=== PATIENT | female | born 1985 | race Caucasian/White ===

== ENCOUNTER 2019-10-12 14:02 | Emergency (ER) | payer BC, SELFPAY ==
[2019-10-12 14:26] VITALS: BP 154/97; PULSE 84; RESP 16; TEMP 36.8; O2SAT 100
--- NOTE | 2019-10-12 14:34 | ED.URI ---
HPI - URI/Sore Throat General Chief Complaint: Upper Respiratory Infection Stated Complaint: Ear/Nose/Throat History of Present Illness HPI Narrative: This is a 34-year-old female comes in complaining of sinus pressure and congestion according to patient for the past week she has had pressure in her face up in her eyes as given her headache. Patient states she is been taking [place] DayQuil and some Tylenol and ibuprofen for the pain. Patient denies any nausea vomiting chills and/or fever. Patient states she is coughing greenish secretion Related Data Allergies Allergy/AdvReac Type Severity Reaction Status Date / Time No Known Allergies Allergy Verified 10/12/19 14:34 Review of Systems Review of Systems: Narrative: CONSTITUTIONAL: Denies fever, chills, or sweats. EYES: Denies visual changes, redness, or discharge. ENT: reports rhinorrhea, congestion, sore throat, or otalgia. CARDIOVASCULAR:Denies chest pain, palpitations, or edema. RESPIRATORY: Denies cough or dyspnea. GASTROINTESTINAL: Denies abdominal pain, nausea, vomiting, or diarrhea. GENITOURINARY: Denies dysuria or hematuria. SKIN:[Denies rash or itching. MUSCULOSKELETAL:Denies back pain, joint pain, or myalgia. NEUROLOGIC: Denies headache, numbness, or weakness. PSYCHIATRIC:Denies anxiety or depression PMFSH Comments At time as signature, I have reviewed and agree with nursing past medical, social, surgical and family history. Please see nursing chart for further information. There is no relevant family history pertinent to the presenting complaint. Exam Narrative: Exam Narrative: GENERAL:Well-appearing, well-nourished, and in no acute distress. HEAD:Normocephalic, atraumatic. EYES: PERRLA and EOMI. ENT: Nares clear, moderate rhinorrhea or epistaxis. Mucous membranes moist. Pharyngeal erythema T-zone pressure and pain with headache TM bulging NECK: Supple. CHEST: Clear to auscultation. No respiratory distress. HEART: Regular rate and rhythm. No murmur heard. Normal peripheral pulses. ABDOMEN: Soft, nontender, nondistended, normal active bowel sounds. EXTREMITIES: Normal range of motion. No edema. SKIN: Warm, dry, no rash. NEURO: No focal deficits. Alert and oriented x3. This is Course Vital Signs Vital signs: Vital Signs Temperature 98.3 F 03/09/20 14:26 Pulse Rate 84 10/12/19 14:26 Respiratory Rate 16 10/12/19 14:26 Blood Pressure 154/97 H 10/12/19 14:26 Pulse Oximetry 100 10/12/19 14:26 Temperature 98.3 F 10/12/19 14:26 Pulse Rate 84 10/12/19 14:26 Respiratory Rate 16 10/12/19 14:26 Blood Pressure 154/97 H 10/12/19 14:26 Pulse Oximetry 100 10/12/19 14:26 Discharge Plan Discharge Clinical Impression: Sinusitis Qualifiers: Sinusitis location: unspecified location Chronicity: acute Recurrence: not specified as recurrent Qualified Code(s): J01.90 - Acute sinusitis, unspecified Patient Disposition: Home, Self-Care Condition: Stable Instructions: Antibiotic Form, Sinusitis (ED), Rhinosinusitis (ED) Prescriptions: New loratadine [Claritin] 10 mg tablet 10 mg PO DAILY PRN (Reason: allergy symptoms) Qty: 30 RF: 0 amoxicillin-pot clavulanate [Augmentin] 875-125 mg tablet 1 tablet PO Q12H 10 Days Qty: 20 RF: 0 Follow-up/Referrals: UNKNOWN,DOCTOR [Primary Care Provider] - Stand Alone Forms: Work/School Release IP Time of Disposition: 15:05
== END 2019-10-12 15:10 | disposition home or self-care (01) ==
PROVIDERS: Emergency Provider Nurse Practitioner Family
DX: J01.90 Acute sinusitis, unspecified (principal)
CPT/HCPCS: 99203; G0463

== ENCOUNTER 2020-04-13 14:44 | Emergency (ER) | payer BC, SELFPAY ==
[2020-04-13 14:52] VITALS: BP 149/82; PULSE 84; RESP 14; TEMP 37.1; O2SAT 97
--- NOTE | 2020-04-13 15:08 | ED.URI ---
HPI - URI/Sore Throat General Chief Complaint: Upper Respiratory Infection Stated Complaint: sore throat Time Seen by Provider: 04/13/20 15:08 Source: patient and RN notes reviewed History of Present Illness HPI Narrative: Patient is a 35-year-old female who presents the urgent care with complaints of a sore throat, sores on the roof of the mouth, postnasal drainage, intermittent hoarseness, and nasal congestion. Patient states that she was tested for COVID on the , which was negative at that time. Patient denies any new known exposure. Denies taking anything [id number] for her symptoms. States that the new symptoms started last night. No other acute complaints. No acute distress noted. Patient aware the plan of care. Related Data Allergies Allergy/AdvReac Type Severity Reaction Status Date / Time No Known Allergies Allergy Verified 04/13/20 15:11 Review of Systems Review of Systems: Narrative: CONSTITUTIONAL: Denies fever, chills, or sweats. EYES: Denies visual changes, redness, or discharge. ENT: Reports of sore throat, nasal congestion, postnasal drainage CARDIOVASCULAR: Denies chest pain, palpitations, or edema. RESPIRATORY: Denies cough or dyspnea. GASTROINTESTINAL: Denies abdominal pain, nausea, vomiting, or diarrhea. GENITOURINARY: Denies dysuria or hematuria. SKIN: Denies rash or itching. MUSCULOSKELETAL: Denies back pain, joint pain, or myalgia. NEUROLOGIC: Denies headache, numbness, or weakness. All other systems reviewed are negative, except as documented in HPI. PMFSH Comments At the time of my signature, I reviewed and agree with the nursing past medical, surgical, social, and family history. There is no relevant family history pertinent to the patient complaint. Exam Narrative: Exam Narrative: GENERAL: This is a well-nourished, well-developed patient, in no apparent distress. HEAD: normocephalic, atraumatic. EYES: PERRL. Sclera clear/white. Vision is grossly intact. EARS: External ears normal, auditory canals clear and without drainage, TMs normal without perforation. Hearing grossly intact. NOSE: External nose normal with no obvious nasal discharge, nares without redness, no rhinorrhea. THROAT: Mucous membranes moist, mild to moderate erythema noted posterior oropharynx with moderate clear postnasal drainage without exudate or ulceration. No tonsillar edema. NECK: Neck supple CARDIOVASCULAR: Regular rate and rhythm without murmurs, gallops, or rubs. RESPIRATORY: Clear to auscultation. Breath sounds equal bilaterally. No wheezes, rales, or rhonchi. SKIN: warm, intact with no suspicious lesions or rash, good texture and turgor. NEURO: awake, alert, and oriented to person, place and time. There were no obvious focal neurologic abnormalities. EXTREMITIES: No clubbing, cyanosis, or edema. Course Vital Signs Vital signs: Vital Signs Temperature 98.7 F 04/13/20 14:52 Pulse Rate 84 04/13/20 14:52 Respiratory Rate 14 04/13/20 14:52 Blood Pressure 149/82 H 04/13/20 14:52 Pulse Oximetry 97 04/13/20 14:52 Temperature 98.7 F 04/13/20 14:52 Pulse Rate 84 04/13/20 14:52 Respiratory Rate 14 04/13/20 14:52 Blood Pressure 149/82 H 04/13/20 14:52 Pulse Oximetry 97 04/13/20 14:52 Reviewed-patient is informed that they may have pre-hypertension or hypertension based on a blood pressure reading in the department. I recommend the patient call the primary care provider listed on their discharge instructions or a physician of their choice this week to arrange follow-up for further evaluation of possible pre-hypertension or hypertension. MDM - URI/Sore Throat MDM Narrative Medical decision making narrative: Reviewed lab results with the patient. She is aware that strep swab was negative. Educated patient on culture we will call within 72 hours if culture is positive and antibiotics are necessary. Advised the patient to use Claritin and Flonase as directed. Do not sleep with a fan
== END 2020-04-13 15:25 | disposition home or self-care (01) ==
PROVIDERS: Emergency Provider Nurse Practitioner Family
DX: J32.9 Chronic sinusitis, unspecified (principal); J02.9 Acute pharyngitis, unspecified
CPT/HCPCS: 87081; 87880; 99213; G0463

== ENCOUNTER 2020-11-21 14:54 | Emergency (ER) | payer BC, SELFPAY ==
[2020-11-21 15:00] VITALS: BP 146/80; PULSE 84; RESP 22; TEMP 37; O2SAT 98
--- NOTE | 2020-11-21 15:09 | ED.URI ---
HPI - URI/Sore Throat General Chief Complaint: Upper Respiratory Infection Stated Complaint: sore throat headache dizzy Time Seen by Provider: 11/21/20 15:09 Source: patient and RN notes reviewed Mode of arrival: ambulatory Limitations: no limitations History of Present Illness HPI Narrative: 35-year-old presents to the [facility] with complaints of sinus issues and a sore throat since Saturday, 5 days ago. Is taken to Claritin over the last 2 days and states it helped a little. No other treatment prior to arrival. Denies fevers. No chest pain or nausea vomiting or diarrhea. No abdominal pain Related Data Allergies Allergy/AdvReac Type Severity Reaction Status Date / Time No Known Allergies Allergy Verified 11/21/20 15:00 Review of Systems Review of Systems: Narrative: CONSTITUTIONAL: Denies fever, chills, or sweats. EYES: Denies visual changes, redness, or discharge. ENT: Reports rhinorrhea, congestion, sore throat, or otalgia. CARDIOVASCULAR: Denies chest pain, palpitations, or edema. RESPIRATORY: Denies cough or dyspnea. GASTROINTESTINAL: Denies abdominal pain, nausea, vomiting, or diarrhea. MUSCULOSKELETAL: Denies back pain, joint pain, or myalgia. NEUROLOGIC: Denies headache, numbness, or weakness. All other systems reviewed are negative, except as documented in HPI. PMFSH Comments At the time of my signature, I reviewed and agree with the nursing past medical, surgical, social, and family history. There is no relevant family history pertinent to the patient complaint. Exam Narrative: Exam Narrative: GENERAL: This is a well-nourished, well-developed patient, in no apparent distress. HEAD: normocephalic, atraumatic. EYES: PERRL. Sclera clear/white. Vision is grossly intact. EARS: External ears normal, auditory canals clear and without drainage, TMs normal without perforation. Hearing grossly intact. NOSE: External nose normal with clear nasal discharge, nares with redness and injection. THROAT: Mucous membranes moist, posterior pharynx drainage noted NECK: Neck supple, non-tender without lymphadenopathy, masses or thyromegaly. CARDIOVASCULAR: Regular rate and rhythm without murmurs, gallops, or rubs. RESPIRATORY: Clear to auscultation. Breath sounds equal bilaterally. No wheezes, rales, or rhonchi. GASTROINTESTINAL: Abdomen soft, non-tender, nondistended. SKIN: warm, Dry, intact with no suspicious lesions or rash, good texture and turgor. NEURO: awake, alert, and oriented to person, place and time. There were no obvious focal neurologic abnormalities. EXTREMITIES: No joint tenderness, effusion, or edema noted. BACK: Nontender without deformity. Course Course Emergency Course: Discussed with patient the results. Discussed the importance of following up with a primary care provider. Discussed that the strep results can take up to 72 hours as well as the Covid PCR. Discussed treatment plan, signs and symptoms to return or go to the ER. Patient verbalized understanding Vital Signs Vital signs: Vital Signs Temperature 98.6 F 11/21/20 15:00 Pulse Rate 84 11/21/20 15:00 Respiratory Rate 22 H 11/21/20 15:00 Blood Pressure 146/80 H 11/21/20 15:00 Pulse Oximetry 98 11/21/20 15:00 Temperature 98.6 F 11/21/20 15:00 Pulse Rate 84 11/21/20 15:00 Respiratory Rate 22 H 11/21/20 15:00 Blood Pressure 146/80 H 11/21/20 15:00 Pulse Oximetry 98 11/21/20 15:00 Reviewed MDM - URI/Sore Throat MDM Narrative Medical decision making narrative: Discharge instructions reviewed with patient, as well as provided in writing per nursing staff. The instructions also include specific and strict return/GO TO THE ER as well as f/u information. All questions have been answered, and the patient deny any further questions with discharge and discharge plan. Differential Diagnosis Differential diagnosis: Likely upper respiratory infection, otitis media, sinusitis, viral infection, bronchitis, influenza and phar
[2020-11-22 20:31] LABS: SARS-CoV-2 RNA PCR Positive
== END 2020-11-21 15:55 | disposition home or self-care (01) ==
PROVIDERS: Emergency Provider Nurse Practitioner
DX: U07.1 COVID-19 (principal); J01.41 Acute recurrent pansinusitis
CPT/HCPCS: 87081; 87426; 87804; 87880; 99213; C9803; G0463; U0003; U0005

== ENCOUNTER 2021-12-18 12:44 | Emergency (ER) | payer SELFPAY ==
--- NOTE | 2021-12-18 12:52 | ED.URI ---
HPI - URI/Sore Throat General Chief Complaint: Ear Stated Complaint: headache ear pain nausea Time Seen by Provider: 12/18/21 13:55 Source: patient and RN notes reviewed Mode of arrival: ambulatory Limitations: no limitations History of Present Illness HPI Narrative: 36-year-old female presents with concern for headache, ear pain, nausea, coughing. She reports symptoms started on . Reports she was exposed to COVID on Saturday. She reports she is taking Claritin with very mild relief. She denies nausea, vomiting, diarrhea, body aches, chills, fever, sweats. MD elicited complaint: cough and other (Ear pain) Related Data Allergies Allergy/AdvReac Type Severity Reaction Status Date / Time No Known Allergies Allergy Verified 11/21/20 15:00 Review of Systems Review of Systems: CONSTITUTIONAL: Denies malaise. Denies chills, sweats, or fever. EYES: Denies visual changes, redness, or discharge. ENT: Reports rhinorrhea, congestion, otalgia CARDIOVASCULAR: Denies chest pain, palpitations, or edema. RESPIRATORY: Reports cough. Denies dyspnea. GASTROINTESTINAL: Denies abdominal pain, nausea, vomiting, diarrhea SKIN: Denies rash or itching. MUSCULOSKELETAL: Denies myalgia. NEUROLOGIC: Reports headache. All systems reviewed & are unremarkable except as noted in HPI and below PMFSH Comments At time of signature, agree with nursing past medical, surgical, social and family history. There is no relevant family history pertinent to the presenting complaint Exam Narrative: GENERAL: Nontoxic appearing and in no acute distress. HEAD: Normocephalic EYES: PERRLA, conjunctivae clear ENT: Nares clear, turbinates edematous and erythematous, clear discharge. Mucous membranes moist. TM pearly gan with dull light reflex bilaterally; no tragal tenderness. Oropharynx not erythematous without lesions. Tonsils not enlarged and without exudate, no drooling, no hoarseness, no trismus, uvula midline. NECK: Supple. No lymphadenopathy CHEST: Clear to auscultation, breath sounds equal. No wheezing, rhonchi, rales, or stridor. No respiratory distress, speaks in full sentences. HEART: Regular rate and rhythm. No murmur heard. SKIN: Warm, dry, no rash. NEURO: Alert and oriented x3. PSYCH: Normal mood and affect Course Course Emergency Course: Patient is aware of diagnosis, understands and agrees to treatment plan. Anticipatory guidance given. Patient agrees to follow-up as directed and is aware of reasons to seek care at the emergency department. Portions of this record may have been created with voice recognition software Level of Care: Express Care Visit Vital Signs Vital signs: Vital Signs Temperature 98.5 F 12/18/21 13:00 Pulse Rate 85 12/18/21 13:00 Respiratory Rate 18 12/18/21 13:00 Blood Pressure 141/92 H 12/18/21 13:00 Pulse Oximetry 98 12/18/21 13:00 Temperature 98.5 F 12/18/21 13:00 Pulse Rate 85 12/18/21 13:00 Respiratory Rate 18 12/18/21 13:00 Blood Pressure 141/92 H 12/18/21 13:00 Pulse Oximetry 98 12/18/21 13:00 Reviewed. MDM - URI/Sore Throat MDM Narrative Medical decision making narrative: Differential diagnosis considered: Lin virus, strep pharyngitis, allergic rhinitis, upper respiratory tract infection, sinusitis, rhinosinusitis, nasopharyngitis. viral pharyngitis, otitis media, otitis externa, pneumonia, bronchitis, viral cough syndrome, viral syndrome, and influenza. Exam findings show no acute concerns or changes; patient is non-toxic appearing and is in no distress. Patient is appropriate for outpatient treatment and follow-up. Lab Data Attestation: I reviewed the patient's lab results. Critical Care Time Critical Care Time Critical Care Time: No Discharge Plan Discharge Clinical Impression: Upper respiratory infection Qualifiers: URI type: unspecified viral URI Qualified Code(s): J06.9 - Acute upper respiratory infection, unspecified Patient Disposition: Home, Self-Care
[2021-12-18 13:00] VITALS: BP 141/92; PULSE 85; RESP 18; TEMP 36.9; O2SAT 98
[2021-12-18 19:48] LABS: SARS-CoV-2 RNA PCR Negative
== END 2021-12-18 14:26 | disposition home or self-care (01) ==
PROVIDERS: Emergency Provider Nurse Practitioner
DX: J06.9 Acute upper respiratory infection, unspecified (principal); Z20.822 Contact with and (suspected) exposure to COVID-19
CPT/HCPCS: 87804; 99213; C9803; G0463; U0003; U0005

== ENCOUNTER 2022-04-23 17:04 | Emergency (ER) | payer OTHER, SELFPAY ==
[2022-04-23 17:12] VITALS: BP 153/101; PULSE 88; RESP 20; TEMP 37.1; O2SAT 99
--- NOTE | 2022-04-23 17:15 | ED.FEMALEGU ---
HPI - Female Genitourinary General Chief complaint: Urogenital-Female Stated complaint: Vaginal Issue Time Seen by Provider: 04/23/22 17:15 Source: patient and RN notes reviewed History of Present Illness HPI Narrative: Patient is a 37-year-old female who presents the urgent care with complaints of yeast infection. Patient states that she has had a lot of vaginal itching and burning. States that it started 2 weeks ago after she was on antibiotics a couple months ago. Patient did use a 7-day cream [id number] with mild relief but no resolution. Patient denies of any vaginal discharge or drainage. Denies any urinary symptoms. No other acute complaints. No acute distress noted. Patient aware of the plan of care. Some parts of this dictation were generated by voice recognition software and may contain typographical and/or grammatical inaccuracies. Related Data Allergies Allergy/AdvReac Type Severity Reaction Status Date / Time No Known Allergies Allergy Verified 11/21/20 15:00 Review of Systems Review of Systems: CONSTITUTIONAL: Denies fever, chills, or sweats. EYES: Denies visual changes, redness, or discharge. ENT: Denies rhinorrhea, congestion, sore throat, or otalgia. CARDIOVASCULAR: Denies chest pain, palpitations, or edema. RESPIRATORY: Denies cough or dyspnea. GASTROINTESTINAL: Denies abdominal pain, nausea, vomiting, or diarrhea. GENITOURINARY: Reports of vaginal itching and burning SKIN: Denies rash or itching. MUSCULOSKELETAL: Denies back pain, joint pain, or myalgia. NEUROLOGIC: Denies headache, numbness, or weakness. All other systems reviewed are negative, except as documented in HPI. PMFSH Comments At the time of my signature, I reviewed and agree with the nursing past medical, surgical, social, and family history. There is no relevant family history pertinent to the patient complaint. Exam Narrative: GENERAL: This is a well-nourished, well-developed patient, in no apparent distress. HEAD: normocephalic, atraumatic. EYES: PERRL. Sclera clear/white. Vision is grossly intact. EARS: External ears normal NOSE: External nose normal with no obvious nasal discharge, nares without redness, no rhinorrhea. THROAT: Mucous membranes moist NECK: Neck supple CARDIOVASCULAR: Regular rate and rhythm without murmurs, gallops, or rubs. RESPIRATORY: Clear to auscultation. Breath sounds equal bilaterally. No wheezes, rales, or rhonchi. : Deferred exam SKIN: warm, intact with no suspicious lesions or rash, good texture and turgor. NEURO: awake, alert, and oriented to person, place and time. There were no obvious focal neurologic abnormalities. EXTREMITIES: No clubbing, cyanosis, or edema. Course Course Level of Care: Express Care Visit Vital Signs Vital signs: Vital Signs Temperature 98.7 F 04/23/22 17:12 Pulse Rate 88 04/23/22 17:12 Respiratory Rate 20 04/23/22 17:12 Blood Pressure 153/101 H 04/23/22 17:12 Pulse Oximetry 99 04/23/22 17:12 Oxygen Delivery Room Air 04/23/22 17:12 Temperature 98.7 F 04/23/22 17:12 Pulse Rate 88 04/23/22 17:12 Respiratory Rate 20 04/23/22 17:12 Blood Pressure 153/101 H 04/23/22 17:12 Pulse Oximetry 99 04/23/22 17:12 Oxygen Delivery Room Air 04/23/22 17:12 Reviewed-patient is informed that they may have pre-hypertension or hypertension based on a blood pressure reading in the department. I recommend the patient call the primary care provider listed on their discharge instructions or a physician of their choice this week to arrange follow-up for further evaluation of possible pre-hypertension or hypertension. MDM - Female Genitourinary MDM Narrative Medical decision making narrative: Advised the patient to take the 1 dose of Diflucan today and if symptoms are not resolved on , take the second dose. Clean the area with plain Dial soap and water and avoid any scented creams or soaps. Follow-up with your PCP within 2 to 5 days or
== END 2022-04-23 17:42 | disposition home or self-care (01) ==
PROVIDERS: Emergency Provider Nurse Practitioner Family
DX: B37.3 Candidiasis of vulva and vagina (principal)
CPT/HCPCS: 99213; G0463

== ENCOUNTER 2022-10-24 14:45 | Emergency (ER) | payer OTHER, SELFPAY ==
[2022-10-24 15:00] VITALS: BP 172/105; PULSE 70; RESP 20; TEMP 37.4; O2SAT 99
--- NOTE | 2022-10-24 15:23 | ED.URI ---
HPI - URI/Sore Throat General Chief Complaint: Upper Respiratory Infection Stated Complaint: poss pink eye/cold Time Seen by Provider: 10/24/22 15:00 Source: patient and RN notes reviewed History of Present Illness HPI Narrative: Patient is a 37-year-old female who presents to the Urgent Care with complaints of redness and irritation to the right eye as well as upper respiratory symptoms such as congestion, runny nose, stuffiness, sore throat, cough for the last 7 days. Patient has been using [id number] lubricant eye drops to the right eye and taking Sudafed for her upper respiratory symptoms. Denies any fever. Denies any injury to the eye. States that she does wear contacts but has been wearing the glasses today. No other acute complaints. No acute distress noted. Patient aware of the plan of care. Some parts of this dictation were generated by voice recognition software and may contain typographical and/or grammatical inaccuracies. Related Data Home Medications Medication Instructions Recorded Confirmed metformin 500 mg tablet,extended 500 mg PO BID 10/24/22 10/24/22 release 24 hr Allergies Allergy/AdvReac Type Severity Reaction Status Date / Time No Known Allergies Allergy Verified 10/24/22 15:08 Review of Systems Review of Systems: CONSTITUTIONAL: Denies fever, chills, or sweats. EYES: Reports of right eye redness, irritation and drainage ENT: Reports rhinorrhea, congestion, mild sore throat CARDIOVASCULAR: Denies chest pain, palpitations, or edema. RESPIRATORY: Reports of cough without dyspnea GASTROINTESTINAL: Denies abdominal pain, nausea, vomiting, or diarrhea. GENITOURINARY: Denies dysuria or hematuria. SKIN: Denies rash or itching. MUSCULOSKELETAL: Denies back pain, joint pain, or myalgia. NEUROLOGIC: Denies headache, numbness, or weakness. All other systems reviewed are negative, except as documented in HPI. PMFSH Comments At the time of my signature, I reviewed and agree with the nursing past medical, surgical, social, and family history. There is no relevant family history pertinent to the patient complaint. Exam Narrative: GENERAL: This is a well-nourished, well-developed patient, in no apparent distress. HEAD: normocephalic, atraumatic. Frontal sinus tenderness EYES: PERRL. Moderate injected sclera to the right with injected conjunctiva bilaterally and clear drainage. Vision is grossly intact. EARS: External ears normal, auditory canals clear and without drainage, TMs normal without perforation. Hearing grossly intact. NOSE: External nose normal with no obvious nasal discharge, nares without redness, clear rhinorrhea. THROAT: Mucous membranes moist, posterior pharynx clear. Moderate postnasal drainage NECK: Neck supple, non-tender without lymphadenopathy CARDIOVASCULAR: Regular rate and rhythm without murmurs, gallops, or rubs. RESPIRATORY: Clear to auscultation. Breath sounds equal bilaterally. No wheezes, rales, or rhonchi. SKIN: warm, intact with no suspicious lesions or rash, good texture and turgor. NEURO: awake, alert, and oriented to person, place and time. There were no obvious focal neurologic abnormalities. EXTREMITIES: No clubbing, cyanosis, or edema. Course Course Level of Care: Express Care Visit Vital Signs Vital signs: Vital Signs Temperature 99.3 F 10/24/22 15:00 Pulse Rate 70 10/24/22 15:00 Respiratory Rate 20 10/24/22 15:00 Blood Pressure 172/105 H 10/24/22 15:00 Pulse Oximetry 99 10/24/22 15:00 Oxygen Delivery Room Air 10/24/22 15:00 Temperature 99.3 F 10/24/22 15:00 Pulse Rate 70 10/24/22 15:00 Respiratory Rate 20 10/24/22 15:00 Blood Pressure 172/105 H 10/24/22 15:00 Pulse Oximetry 99 10/24/22 15:00 Oxygen Delivery Room Air 10/24/22 15:00 Reviewed- Patient is informed that they may have pre-hypertension or hypertension based on a blood pressure reading in the department. I recommend the patient call the primary ca
== END 2022-10-24 15:40 | disposition home or self-care (01) ==
PROVIDERS: Emergency Provider Nurse Practitioner Family
DX: J32.9 Chronic sinusitis, unspecified (principal); H10.9 Unspecified conjunctivitis
CPT/HCPCS: 99213; G0463

== ENCOUNTER 2023-02-13 12:00 | Emergency (ER) | payer OTHER, SELFPAY ==
--- NOTE | 2023-02-13 12:02 | ED.URI ---
HPI - URI/Sore Throat General Chief Complaint: Upper Respiratory Infection Stated Complaint: congestion/sore throat Time Seen by Provider: 02/13/23 12:02 Source: patient and RN notes reviewed History of Present Illness HPI Narrative: Patient is a 37-year-old female who presents to Urgent Care with sinus congestion, sore throat, drainage and cough. Patient states it started Saturday after sitting outside late Saturday night watching fireworks. Patient has been taking [id number] sinus medication and ibuprofen. Denies any fever, nausea or vomiting. No other acute complaints. No acute distress noted. Patient aware of the plan of care. Some parts of this dictation were generated by voice recognition software and may contain typographical and/or grammatical inaccuracies. Related Data Home Medications Medication Instructions Recorded Confirmed metformin 500 mg tablet,extended 500 mg PO BID 10/24/22 10/24/22 release 24 hr Allergies Allergy/AdvReac Type Severity Reaction Status Date / Time No Known Allergies Allergy Verified 10/24/22 15:08 Review of Systems Review of Systems: CONSTITUTIONAL: Denies fever, chills, or sweats. EYES: Denies visual changes, redness, or discharge. ENT: Reports of sinus congestion, pressure, sore throat, drainage CARDIOVASCULAR: Denies chest pain, palpitations, or edema. RESPIRATORY: Reports cough without dyspnea GASTROINTESTINAL: Denies abdominal pain, nausea, vomiting, or diarrhea. GENITOURINARY: Denies dysuria or hematuria. SKIN: Denies rash or itching. MUSCULOSKELETAL: Denies back pain, joint pain, or myalgia. NEUROLOGIC: Denies headache, numbness, or weakness. All other systems reviewed are negative, except as documented in HPI. PMFSH Comments At the time of my signature, I reviewed and agree with the nursing past medical, surgical, social, and family history. There is no relevant family history pertinent to the patient complaint. Exam Narrative: GENERAL: This is a well-nourished, well-developed patient, in no apparent distress. HEAD: normocephalic, atraumatic. EYES: PERRL. Sclera clear/white. Vision is grossly intact. EARS: External ears normal, auditory canals clear and without drainage, TMs normal without perforation. Hearing grossly intact. NOSE: External nose normal with no obvious nasal discharge, mild bilateral erythema nares with inflamed tuberosities THROAT: Mucous membranes moist, posterior pharynx clear. Moderate postnasal drainage NECK: Neck supple, non-tender without lymphadenopathy RESPIRATORY: Dry cough noted on exam. Clear to auscultation. Breath sounds equal bilaterally. No wheezes, rales, or rhonchi. SKIN: warm, intact with no suspicious lesions or rash, good texture and turgor. NEURO: awake, alert, and oriented to person, place and time. There were no obvious focal neurologic abnormalities. EXTREMITIES: No clubbing, cyanosis, or edema. Course Course Level of Care: Express Care Visit Vital Signs Vital signs: Vital Signs Temperature 98.8 F 02/13/23 12:05 Pulse Rate 84 02/13/23 12:05 Respiratory Rate 20 02/13/23 12:05 Blood Pressure 150/87 H 02/13/23 12:05 Pulse Oximetry 100 02/13/23 12:05 Oxygen Delivery Room Air 02/13/23 12:05 Temperature 98.8 F 02/13/23 12:05 Pulse Rate 84 02/13/23 12:05 Respiratory Rate 20 02/13/23 12:05 Blood Pressure 150/87 H 02/13/23 12:05 Pulse Oximetry 100 02/13/23 12:05 Oxygen Delivery Room Air 02/13/23 12:05 Reviewed-Patient is informed that they may have pre-hypertension or hypertension based on a blood pressure reading in the department. I recommend the patient call the primary care provider listed on their discharge instructions or a physician of their choice this week to arrange follow-up for further evaluation of possible pre-hypertension or hypertension. MDM - URI/Sore Throat MDM Narrative Medical decision making narrative: Reviewed lab results with the patient.
[2023-02-13 12:05] VITALS: BP 150/87; PULSE 84; RESP 20; TEMP 37.1; O2SAT 100
== END 2023-02-13 12:30 | disposition home or self-care (01) ==
PROVIDERS: Emergency Provider Nurse Practitioner Family; PCP Family Medicine
DX: J32.9 Chronic sinusitis, unspecified (principal); Z86.16 Personal history of COVID-19
CPT/HCPCS: 87081; 87880; 99213; G0463